=== PATIENT | male | born 1955 | race Caucasian/White ===

== ENCOUNTER 2022-03-07 14:03 | Emergency (ER) | payer MEDICARE ==
[2022-03-07 15:12] LABS: CHLORIDE,CL 103 mmol/L (98-107); SODIUM,NA 139 mmol/L (136-145)
[2022-03-07 15:18] LABS: ANION GAP 14.8 mmol/L (5-15); ESTIMATED GFR 61 mL/min (>=60)
[2022-03-07] MEDS ORDERED: Heparin Sodium 5,000 Units/ML Vial IVPUSH ONE (15:56)
[2022-03-07] MEDS ORDERED: Metoprolol Tartrate 50 MG Tab PO STA (15:56)
[2022-03-07] MEDS ORDERED: Aspirin 81 MG Tab.Chew PO ONE (15:58)
[2022-03-07] MEDS ORDERED: Heparin Sodium/0.45% NaCl 25,000 UNITS/500 ML BAG IV SCH (16:00)
[2022-03-07 16:25] LABS: PTT,PARTIAL THROMBOPLSTIN TIME 29.3 SEC (20.5-30.9)
== END 2022-03-07 16:54 | disposition short-term general hospital (02) ==
LOC: VM.ED 14:03
DX: I11.0 Hypertensive heart disease with heart failure (principal); I50.9 Heart failure, unspecified; R79.89 Other specified abnormal findings of blood chemistry; Z79.899 Other long term (current) drug therapy
CPT/HCPCS: 36415; 71046; 80053; 82550; 83615; 83880; 84484; 85025; 85610; 85730; 86140; 93005; 93010; 96365; 96376; 99284; 99285-25; A9270-GY; J1644